=== PATIENT | female | born 1995 | race Caucasian/White ===

== ENCOUNTER → 2020-08-15 13:21 | Outpatient (CLI) | payer OTHER, SELFPAY | PROVIDERS: PCP Specialist; Visit Provider Specialist | DX: Z34.01 Encounter for supervision of normal first pregnancy, first trimester (principal); Z3A.09 9 weeks gestation of pregnancy ==

== ENCOUNTER → 2020-08-15 13:58 | Outpatient (CLI) | payer OTHER, SELFPAY ==
[2020-08-15 14:30] LABS: Add Manual Diff / Slide Review NO; Basophils Absolute Auto 100 /uL (0-100); Basophils Percent Auto 0.5 % (0-2); Eosinophils Absolute Auto 200 /uL (0-450); Eosinophils Percent Auto 1.6 % (2-4); Hematocrit 36.9 % (36-46); Hemoglobin 12.3 g/dL (12.0-16.0); Lymphocytes Absolute Auto 1800 /uL (1100-4500); Lymphocytes Percent Auto 14.5 % (25-40); Mean Corpuscular HGB Conc 33.4 % (30-36); Mean Corpuscular Hemoglobin 30.4 PG (26-34); Mean Corpuscular Volume 91.1 fL (80-100); Monocytes Absolute Auto 800 /uL (0-900); Monocytes Percent Auto 6.6 % (3-14); Neutrophils Absolute Auto 9300 /uL (1500-7000); Neutrophils Percent Auto 76.8 % (50-75); Platelet Count 347 X10^3/uL (150-400); Red Blood Cell Count 4.05 X10^6/uL (4.0-5.2); Red Cell Distribution Width 12.6 % (11.6-14.8); White Blood Cell Count 12.1 X10^3/uL (4.5-11.0)
[2020-08-15 15:53] LABS: Hepatitis B Surface Antigen NEGATIVE s/c (NEGATIVE); Rubella Antibody IgG 13.6 IU/mL (>15)
[2020-08-15 16:10] LABS: HIV 1 & 2 Ab/Ag 4th Gen Combo NEGATIVE (NEGATIVE); Hep C Virus Ab w/Reflex Quant NEGATIVE s/c (NEGATIVE)
[2020-08-16 07:18] LABS: RPR Screen Non Reactive (Non Reactive); Varicella IgG Antibody 1332 index (Immune >165)
== END ==
PROVIDERS: PCP Specialist; Referring Provider Specialist; Visit Provider Specialist
DX: Z34.01 Encounter for supervision of normal first pregnancy, first trimester (principal); Z3A.09 9 weeks gestation of pregnancy
CPT/HCPCS: 36415; 80055; 86787; 86803; 86850; 86900; 86901; 87389; 87491; 87591

== ENCOUNTER → 2020-09-19 15:51 | Outpatient (ROUT) | payer OTHER, SELFPAY | PROVIDERS: Visit Provider Specialist | DX: Z11.3 Encounter for screening for infections with a predominantly sexual mode of transmission; Z3A.15 15 weeks gestation of pregnancy | CPT/HCPCS: 87491; 87591 ==

== ENCOUNTER → 2020-10-31 12:43 | Outpatient (CLI) | payer OTHER, SELFPAY ==
--- NOTE | 2020-10-31 12:44 | DI.US.S_ITS ---
PROCEDURE: US OB >= 14 WEEKS FETUS INDICATIONS: ANATOMY OUTSIDE/PRIOR DATING DATA: Last menstrual period (LMP): 06/09/2020. LMP-based estimated date of delivery (ANNE-MARIE): 03/16/2021 . First dating scan (date and location): 08/15/2020 . Estimated date of delivery (ANNE-MARIE) from first dating scan: 03/15/2021 . TECHNIQUE: Real-time scanning was performed of the fetus, with image documentation and biometric measurements. Endovaginal scanning: No COMPARISON: None. FINDINGS: General: A single living intrauterine gestation is present. Presentation: Vertex. Placenta: Placental position is posterior , without previa. Amniotic fluid index: 13.3 cm, normal range is 5-24 cm. heart rate: 143 beats per minute. Maternal cervical canal: 3.6 cm long. Normal lower limit is 2.5 cm. biometrics: Biparietal diameter: 20 weeks 3 days Head circumference: 20 weeks 1 day Abdominal circumference: 20 weeks 3 days Femur length: 21 weeks 1 day Estimated gestational age from initial scan: 20 weeks 5 days Composite gestational age from present scan: 20 weeks 4 days Estimated weight and percentile: 370 g; 43rd percentile Measurement variability for biometric dating: +/- 7 days from 14 weeks to 15 weeks 6 days gestation, +/- 10 days from 16 weeks to 21 weeks 6 days gestation, +/- 2 weeks from 22 weeks to 27 weeks 6 days gestation, +/- 3 weeks for 28 weeks gestation or later. weight reference: 4500 g or EFW >90/95% is considered macrosomia or large for gestational age. EFW <10% is small for gestational age. EFW 5% or less is considered intra-uterine growth restriction. Anatomic survey: Neuro: Ventricles are non-dilated at less than 10 mm. Cisterna magna is normal at 3-11 mm. Cerebellum is normal in size and morphology. Nuchal skin fold: Normal at less than 6 mm between 14-21 weeks gestational age. Face: Nose and lips, facial profile are normal. Spine: No evidence for spina bifida. Heart: 4-chambered heart is present, with normal ventricular outflow tracts. Diaphragm: Diaphragm is intact. Stomach: Left-sided stomach is present. Kidneys: No hydronephrosis. Normal is less than 5 mm in 2nd trimester, less than 7 mm in 3rd trimester. Cord: 3-vessel cord has orthotopic insertion. Marginal cord insertion site roughly 1.5 cm from the placental margin. Bladder: Normal in size. Extremities: All 4 extremities identified. IMPRESSION: 1. Single living IUP redemonstrated and interval growth is normal. 2. Normal anatomic survey. 3. Marginal cord insertion site. Dictated by: Jose Denise [facility] Interpreted: Cuba Costa MD on 10/31/2020 at 15:52 Approved by: Cuba Costa M.D. on 10/31/2020 at 16:15
== END ==
PROVIDERS: Referring Provider Specialist; Visit Provider Specialist
DX: Z34.02 Encounter for supervision of normal first pregnancy, second trimester (principal); Z3A.20 20 weeks gestation of pregnancy
CPT/HCPCS: 76811

== ENCOUNTER → 2020-12-04 09:08 | Outpatient (CLI) | payer OTHER, SELFPAY ==
[2020-12-04 10:58] LABS: Hemoglobin 12.1 g/dL (12.0-16.0)
[2020-12-04 11:14] LABS: GTT (PREG) 1 Hour PP 50gm Dose 109 mg/dL (76-139)
== END ==
PROVIDERS: Referring Provider Specialist; Visit Provider Specialist
DX: Z34.02 Encounter for supervision of normal first pregnancy, second trimester (principal); Z3A.24 24 weeks gestation of pregnancy
CPT/HCPCS: 36415; 82950; 85014; 85018

== ENCOUNTER → 2021-02-20 13:38 | Outpatient (CLI) | payer OTHER, SELFPAY ==
[2021-02-23 14:56] LABS: Strep Grp B PCR POS for Grp B Strep
== END ==
PROVIDERS: Visit Provider Specialist
DX: Z34.03 Encounter for supervision of normal first pregnancy, third trimester (principal); Z3A.36 36 weeks gestation of pregnancy
CPT/HCPCS: 87653

== ENCOUNTER 2021-03-20 10:12 | Outpatient (CLI) | payer OTHER, SELFPAY ==
--- NOTE | 2021-03-20 11:10 | PM.OBTRLD ---
Visit Information Visit Information Date of evaluation: 03/20/21 Primary OB Provider: Neida Snell Reason for Evaluation: Yes non-stress test non-stress test reason: other (Postdates) [facility] Surgical History (Updated 08/05/20 @ 13:40 by Carol Miller RN) H/O wisdom tooth extraction (~12/2019) Family History (Updated 08/05/20 @ 13:40 by Carol Miller RN) Mother Aberrant thyroid gland H/O: hysterectomy History of 3 sections Father No problems noted. Grandfather No problems noted. Grandmother Cancer Breast cancer Hypertension Endometrial cancer Grandfather Smoker Grandmother No problems noted. Social History marital status: unmarried,living together household members: significant other lives independently: Yes pets and animals: Yes (X 1 dog) education level: college occupational status: employed current occupational exposures/hazards: No special brie needs: No Smoking Status: Never smoker second hand exposure: No alcohol intake: former substance use type: does not use Evaluation Evaluation Baseline heart rate: 120 Variability: Moderate (11-25) monitor accelerations: Present Monitor Decelerations: Absent Contraction Frequency (minutes): 5 Uterine Contraction Intensity: Mild Category of Tracing: Reactive Status: Category l Cervical dilation (cm): 1 Cervical effacement (%): 75 station: -2 Diagnosis, Plan/Disposition Final Diagnosis (1) Post term over 40 weeks: Status: Acute Plan/Disposition Plan: Reactive nonstress test. Yesterday 05/24 biophysical profile. Grade 3 placenta. Follow-up in 4 days. Precautions reviewed OB Disposition: home
== END 2021-03-20 11:15 | disposition home or self-care (01) ==
LOC: LABOR 11:03 → OB 03-23 09:48
PROVIDERS: Referring Provider Specialist; Visit Provider Specialist
DX: O48.0 Post-term pregnancy (principal); Z3A.40 40 weeks gestation of pregnancy
CPT/HCPCS: 59025; G0378; G0379

== ENCOUNTER 2021-03-24 12:41 | Outpatient (CLI) | payer OTHER, SELFPAY ==
--- NOTE | 2021-03-24 14:02 | PM.OBTRLD ---
Visit Information Visit Information Date of evaluation: 03/24/21 Primary OB Provider: Neida Snell On-call OB Provider: Aydin Redd Reason for Evaluation: Yes non-stress test non-stress test reason: other (Post-dates) [facility] Surgical History H/O wisdom tooth extraction (~12/2019) Family History Mother Aberrant thyroid gland H/O: hysterectomy History of 3 sections Father No problems noted. Grandfather No problems noted. Grandmother Cancer Breast cancer Hypertension Endometrial cancer Grandfather Smoker Grandmother No problems noted. Social History marital status: unmarried,living together household members: significant other lives independently: Yes pets and animals: Yes (X 1 dog) education level: college occupational status: employed current occupational exposures/hazards: No special brie needs: No Smoking Status: Never smoker second hand exposure: No alcohol intake: former substance use type: does not use Evaluation Evaluation Baseline heart rate: 145 Variability: Moderate (11-25) monitor accelerations: Present Monitor Decelerations: Absent Uterine Contraction Intensity: Mild Category of Tracing: Reactive Status: Category l Cervical dilation (cm): 0 Cervical effacement (%): 75 station: -2 Comments: Cervical ripening scheduled for the evening of 03/25/2021. Induction consent signed. Indication post-dates.
== END 2021-03-24 13:50 | disposition home or self-care (01) ==
LOC: LABOR 13:51 → OB 03-25 08:43
PROVIDERS: Referring Provider Specialist; Visit Provider Specialist
DX: O48.0 Post-term pregnancy (principal); Z3A.41 41 weeks gestation of pregnancy
CPT/HCPCS: 59025; G0378; G0379

== ENCOUNTER 2021-03-25 20:24 | Inpatient (IN) | payer OTHER, SELFPAY ==
[2021-03-25 22:54] LABS: Add Manual Diff / Slide Review NO; Basophils Absolute Auto 100 /uL (0-100); Basophils Percent Auto 0.6 % (0-2); Eosinophils Absolute Auto 200 /uL (0-450); Eosinophils Percent Auto 1.4 % (2-4); Hematocrit 38.2 % (36-46); Hemoglobin 12.8 g/dL (12.0-16.0); Lymphocytes Absolute Auto 2300 /uL (1100-4500); Lymphocytes Percent Auto 19.2 % (25-40); Mean Corpuscular HGB Conc 33.5 % (30-36); Mean Corpuscular Hemoglobin 31.2 PG (26-34); Mean Corpuscular Volume 93.1 fL (80-100); Monocytes Absolute Auto 1100 /uL (0-900); Monocytes Percent Auto 8.8 % (3-14); Neutrophils Absolute Auto 8500 /uL (1500-7000); Platelet Count 253 X10^3/uL (150-400); Red Cell Distribution Width 13.7 % (11.6-14.8); White Blood Cell Count 12.1 X10^3/uL (4.5-11.0)
[2021-03-25] MEDS: miSOPROStoL 200 MCG TABLET 50 MCG PO (23:17)
[2021-03-25 23:47] VITALS: BP 104/53
[2021-03-26 06:57] LABS: COVID19 -Nasal RAPID Negative (Negative)
--- NOTE | 2021-03-26 06:57 | PM.OBHP.1 ---
OB HPI History of Present Condition Chief complaint: IUP, Post-dates Narrative: Manjula Johnson is a 25 year old ANNE-MARIE 03/16/2021 admitted at 41+3 weeks EGA for cervical ripening/induction. course has been unremarkable but she is GBS +. Following her initial dose of PO cytotec, she experienced AROM this AM at 0130. The fluid was lightly meconium stained. Evaluation Evaluation Baseline heart rate: 145 Variability: Moderate (11-25) monitor accelerations: Present Monitor Decelerations: Absent Contraction Frequency (minutes): 3 Uterine Contraction Intensity: Mild Category of Tracing: Reactive Status: Category l Laboratory results: Laboratory Tests 03/25/21 03/25/21 22:25 22:25 WBC 12.1 H RBC 4.10 Hgb 12.8 Hct 38.2 MCV 93.1 MCH 31.2 MCHC 33.5 RDW 13.7 Plt Count 253 Neut % (Auto) 70.0 Lymph % (Auto) 19.2 L [place] % (Auto) 8.8 Eos % (Auto) 1.4 L Baso % (Auto) 0.6 Neut # (Auto) 8500 H Lymph # (Auto) 2300 [place] # (Auto) 1100 H Eos # (Auto) 200 Baso # (Auto) 100 Blood Type A Positive Antibody Screen Negative [facility] Surgical History H/O wisdom tooth extraction (~12/2019) Family History Mother Aberrant thyroid gland H/O: hysterectomy History of 3 sections Father No problems noted. Grandfather No problems noted. Grandmother Cancer Breast cancer Hypertension Endometrial cancer Grandfather Smoker Grandmother No problems noted. Social History marital status: unmarried,living together household members: significant other lives independently: Yes pets and animals: Yes (X 1 dog) education level: college occupational status: employed current occupational exposures/hazards: No special brie needs: No Smoking Status: Never smoker second hand exposure: No alcohol intake: former substance use type: does not use Meds Home Medications and Allergies Home Medications Medication Instructions Recorded Confirmed Type prenat.vits,nieves,ijz-wdto-penju 1 tab PO DAILY 08/05/20 03/24/21 History Allergies Allergy/AdvReac Type Severity Reaction Status Date / Time No Known Drug Allergies Allergy Verified 03/24/21 11:44 Review of Systems Review of Systems ROS: Yes All systems reviewed with the patient and are negative except as otherwise documented Exam Vital Signs (past 8 hours): - 03/25/21 23:47 Blood Pressure 104/53 L Const General: cooperative, healthy appearing and comfortable Nutritional Appearance: average body habitus Orientation: alert and oriented x3 HENMT Head: normocephalic and atraumatic Ears: hearing grossly normal bilaterally Nose: external nose normal Face and sinus: face symmetric Mouth: oral mucosae normal and tongue normal Teeth and gingiva: dentition normal Throat: posterior oropharynx normal Eyes General: appearance normal, both eyes and all related structures Eyelids: eyelids normal Conjunctivae: conjunctivae normal Sclera: sclerae normal Cornea: corneas normal Pupils: PERRL EOM: EOM intact bilaterally Neck Neck: full ROM, trachea midline and No lymphadenopathy Thyroid: thyroid normal Resp Effort & Inspection: normal respiratory effort Auscultation: clear to auscultation bilaterally Cardio Rate: regular rate Rhythm: regular rhythm Heart Sounds: S1 normal and S2 normal Pulses: normal peripheral pulses GI Inspection: other (Gravid abdomen) Palpation: soft Other: Fundus c/w term IUP, EFW 8+#, NT OB/External & Speculum: deferred Manual OB Exam: dilated 1, effaced 75% and station (Prior to first dose of cytotec, PM 03/25/2021) -2 Presentation: vertex Amniotic Fluid: meconium (Possible light staining noted at the time of AROM) Extrem General: normal to inspection and full ROM Psych Appearance: grossly normal Mental Status: mental status grossly normal Speech and Movement: speech and movement normal Mood: congruent mood Affect: normal affect Attitude: cooperative Thought Process: normal Thought Content: normal Judgment: judgment good Objective Labs Result Diagrams: 03/25/21 22:25 Labs: Laboratory Results - last 24 hr 03/25/21 03/25/21 22:25 22:25 WBC 12.1 H RBC 4.10 Hgb 12.8 Hct 38.2 MCV 93.1 MCH 31.2 MCHC 33.5 RDW 13.7 Plt Count 253 Neut % (Auto) 70.0 Lymph % (Auto) 19.2 L [place] % (Auto) 8.8 Eos % (Auto) 1.4 L Baso % (Auto) 0.6 Neut # (Auto) 8500 H Lymph # (Auto) 2300 [place] # (Auto) 1100 H Eos # (Auto) 200 Baso # (Auto) 100 Blood Type A Positive Antibody Screen Negative Assessment and Plan Assessment and Plan Assessment and Plan narrative: 1. IUP, leyva, vertex, 41+3 weeks EGA Ripening/induction; consent signed Anticipate Pain management; Open to all options 2. GBS+ PCN AB prophylaxis initiated Time Spent with Patient Total time spent with greater than 50% in coordination of care (as documented) at patient's floor/unit and/or counseling patient:: 15-24 minutes
[2021-03-26] MEDS: LACTATED RINGERS 1,000 ML 100 ML IV ×2 (09:18→21:24)
[2021-03-26] MEDS: OXYTOCIN PREMIX 30 UNIT/500 ML PLAST..BAG IV (09:19)
[2021-03-26] MEDS: PENICILLIN G POTASSIUM 5,000,000 UNIT in DEXTROSE 5% IN WATER 250 ML IV (09:20)
[2021-03-26] MEDS: FENT 2MCG/ML BUPIV 0.125% EPI 200 MCG/100 ML PLAST..BAG 12 MCG EPIDURAL (11:40)
--- NOTE | 2021-03-26 12:55 | PM.OBPNLAB ---
Date/Time Date Patient Seen: 03/26/21 Time Patient Seen: 12:56 Pain Control Pain control: tolerating well and epidural Comments: Excellent relief with JAVIER Pelvic Exam Dilation (cm): 3 Effacement (%): 70 station: -2 Amniotic membrane status: Ruptured Contractions Contractions on admission: regular Monitor mode: External Pitocin rate (mU/min): 9 Contraction frequency (min): 5 Contraction duration (min): 60 Contraction pattern: Regular Contraction intensity: Moderate Status status: Category l Heart Rate Baseline: 125 Monitor Accelerations: Present Monitor Decelerations: Absent Monitor Variability: Moderate Assessment and Plan Assessment: induction ongoing Plan: continuous present management Comments: Anticipate cervical recheck @ 1600 this afternoon.
[2021-03-26] MEDS: PENICILLIN G POTASSIUM 3,000,000 UNIT/50 ML FROZ.PIGGY 100 UNIT IV ×3 (12:58→21:15)
--- NOTE | 2021-03-26 16:34 | PM.OBPNLAB ---
Date/Time Date Patient Seen: 03/26/21 Time Patient Seen: 16:05 Pain Control Pain control: tolerating well and epidural Pelvic Exam Dilation (cm): 4 Effacement (%): 80 station: -2 Amniotic membrane status: Ruptured Comments: OT position Contractions Contractions on admission: regular Monitor mode: External Pitocin rate (mU/min): 18 Contraction frequency (min): 3 Contraction pattern: Regular Contraction intensity: Moderate Status status: Category l Heart Rate Baseline: 130 Monitor Accelerations: Present Monitor Decelerations: Absent Monitor Variability: Moderate Assessment and Plan Assessment: induction ongoing Plan: continuous present management Comments: Current status and cervical check findings discussed with the patient and her family. She is currently in the latent phase which has a highly variable duration but patient informed that wants to in the active phase, 6 cm or greater, progress and be more predictable. She was also informed that she is occiput transverse which is not uncommon but may delay progress in either the latent or early active phase. Dr. Stefani Beckman will be on-call tonight in the patient was made aware of this fact. Dr. Beckman has been verbally briefed on the patient's status and will be visiting with the patient later this evening.
--- NOTE | 2021-03-26 19:15 | PM.OBPNLAB ---
Date/Time Date Patient Seen: 03/26/21 Time Patient Seen: 19:15 Pain Control Pain control: epidural Pelvic Exam Dilation (cm): 4 Effacement (%): 80 station: -2 Amniotic membrane status: Ruptured Contractions Monitor mode: External Pitocin rate (mU/min): 21 Contraction frequency (min): 3 Contraction pattern: Regular Contraction intensity: Moderate Status status: Category l Heart Rate Baseline: 135 Monitor Accelerations: Present Monitor Decelerations: Absent Monitor Variability: Moderate Comments: +scalp stim Assessment and Plan Assessment: induction ongoing Plan: continuous present management Comments: Discussed latent labor, discussed cat 1 EFM, afebrile, no signs/sx infection and patient has been being treated for GBS. Will continue to monitor.
[2021-03-27] MEDS: FENT 2MCG/ML BUPIV 0.125% EPI 200 MCG/100 ML PLAST..BAG 6 MCG EPIDURAL ×2 (00:35→05:35)
[2021-03-27] MEDS: PENICILLIN G POTASSIUM 3,000,000 UNIT/50 ML FROZ.PIGGY 100 UNIT IV (04:30)
--- NOTE | 2021-03-27 05:23 | PM.OBPNLAB ---
Date/Time Date Patient Seen: 03/27/21 Time Patient Seen: 05:23 Pain Control Pain control: epidural Pelvic Exam Dilation (cm): 4 Effacement (%): 80 station: -2 Amniotic membrane status: Ruptured Comments: VSS, T 36.8C Contractions Monitor mode: External Contraction pattern: Regular Contraction intensity: Moderate Status status: Category l Heart Rate Baseline: 125 Monitor Accelerations: Present Monitor Decelerations: Absent Monitor Variability: Moderate Comments: + scalp stim Assessment and Plan Plan: Comments: THis patient is a 25yo @41+4 admitted for IOL for postdates. The patient underwent cervical ripening with one dose of oral cytotec before SROM at 1:30 AM on 03/26, with subsequent augmentation of labor with pitocin. She was 3cm dilated on 03/26 at 8:30 AM, progressed to 4cm dilated on 03/26 at 4:00 PM, and has remained 4cm dilated since that time. Her pitocin has been as high as 27 mU/min during that time, with palpably firm and regular contractions. The patient is GBS+ and has been undergoing treatment with penicillin per the usual protocol. This AM, the patient's exam remained the same, though her pitocin was off for three hours per patient request. We discussed that the latent phase can be long, and that as the baby is cat 1, we can continue pitocin augmentation. We discussed at length the risks of primary section including hemorrhage, infection, and damage to surrounding organs including bowel and bladder. We discussed the risks to future pregnancies including abnormal placentation, uterine rupture, and increased scar tissue. The patient and her partner vocalized understanding and all questions were answered, but they would like to proceed with primary section rather than continue to undergo induction. We will begin prep for the OR.
--- NOTE | 2021-03-27 06:19 | PM.PREOP ---
Pre-operative Note COVID-19 COVID-19 status: Negative Result date/Date tested (Pos, Neg/Pending): 03/25/21 Interval Note History & Physical reviewed/Exam performed by Physician: Yes Changes to H&P: No
[2021-03-27] MEDS: CEFAZOLIN 1 GM VIAL 2 GM IV (06:40)
[2021-03-27] MEDS: AZITHROMYCIN 500 MG in DEXTROSE 5% IN WATER 250 ML IV (06:45)
--- NOTE | 2021-03-27 06:52 | SUR.OPER ---
Supine on Padded OR bed, head on pillow, safety belt at thigh, arms secured on padded arm boards at <90 degrees abduction. Bump under right buttock. Legs uncrossed with pillow under knees, gel pad to heels, tape over blanket to lower legs. Gel pad between urinary catheter tubing and patients posterior leg.
--- NOTE | 2021-03-27 07:11 | SUR.OPER ---
Viable baby girl delivered at 0703. Placenta delivered. Cord blood tubes X2 and placenta given to L&D RN.
[2021-03-27 08:02] VITALS: BP 119/75; PULSE 74; RESP 12; TEMP 36.7
[2021-03-27 08:07] VITALS: BP 119/74; PULSE 77; RESP 16; O2SAT 96
[2021-03-27 08:12] VITALS: BP 119/74; PULSE 71; RESP 16; O2SAT 96
[2021-03-27 08:17] VITALS: BP 114/71; PULSE 67; TEMP 36.7
[2021-03-27 08:35] VITALS: BP 125/81; PULSE 78; RESP 16
[2021-03-27 08:36] VITALS: BP 110/70; PULSE 68; RESP 16; TEMP 36.7
--- NOTE | 2021-03-27 09:12 | PM.OBCS.1 ---
Operative Date/Time/Diagnoses Date of procedure: 03/27/21 Time of procedure: 06:30 Pre-op diagnosis: failed induction of labor Post-op diagnosis: same Procedure & Clinicians Procedure: primary section Same procedure as scheduled: Yes Indications: arrest of dilation in the 1st stage of labor Surgeon: Stefani Beckman Assessment Expert: Daly Parmar Reason for Assessment Expert: assistance with retraction, delivery of infant, and management of uterine atony Anesthesia Type: General and Epidural Operative Notes Findings: Female in cephalic, asynclitic presentation. Apgars 9 and 9, weight 8 lb, 12 oz. normal uterus, tubes, ovaries. Closure Type: primary Specimen(s): cord blood Intraoperative meds administered: Ketorolac and Pitocin Applied: Catheter Estimated Blood Loss (mL): 1,000 Blood products transfused: none Procedure in detail: EBL: 1 L Fluids: 900 cc UOP: 75 cc concentrated yellow urine Procedures: The patient was taken to the operating room where spinal anesthesia was placed and found to be adequate. She was prepped and draped in the normal sterile fashion in the dorsal supine position with a leftward tilt. A Pfannenstiel skin incision was made with a scalpel and carried through to the underlying layer of fascia. The fascia was incised in the midline and the incision extended laterally with Morales scissors. The superior aspect of this incision was grasped with Ezekiel clamps, elevated, and the underlying rectus muscles dissected off bluntly and with the curved Morales scissors. Attention was then turned to the inferior aspect of this incision which, in a similar fashion, was grasped, tented up with the Ezekiel clamps, and the rectus muscles dissected off bluntly and with the curved Morales scissors. The rectus muscles were then in the midline, and the peritoneum identified, tented up, and entered sharply with Metzenbaum scissors. The peritoneal incision was extended superiorly and inferiorly with good visualization of the bladder. The bladder blade was inserted and the vesicouterine peritoneum identified, grasped with pickups, and entered sharply with the Metzenbaum scissors. This incision was extended laterally, and the bladder flap created digitally. The bladder blade was then reinserted and the lower uterine segment incised in transverse fashion with the scalpel. The uterine incision was bluntly extended laterally. The bladder blade was removed, and the infant's head delivered atraumatically. No nuchal cord was noted. After 45 seconds of delayed cord clamping, the cord was clamped and cut. The nose and mouth were suctioned as needed with a bulb syringe, and the infant was handed off to awaiting pediatricians. The placenta was then removed spontaneously, and the uterus was exteriorized and cleared of all clots and debris. The uterine incision was repaired with 1-0 chromic in a running, locked fashion and a 2nd layer of the same suture was used to obtain excellent hemostasis. Uterus was notable for poor tone initially with loss from several vessels, but hemostasis was achieved. The uterus was returned to the abdomen, and the gutters were cleared of all clots and debris. The bladder flap was closed with 2-0 Vicryl in a running fashion, the peritoneum was closed with 3-0 Vicryl, and the fascia reapproximated with 0 Vicryl in a running fashion. The subcutaneous layer was placed with 3 0 Vicryl in an interrupted fashion and the skin was closed with 4-0 biosyn in a running fashion. The patient tolerated the procedure well and sponge lap and needle counts were correct x2. 2 g of Ancef and 500 mg of azithromycin were given at commencement of the case. A vaginal Betadine prep was performed prior to the case along with the usual abdominal prep. The patient was taken to the recovery room in stable condition. Complications: none [place] Baby 1: Infant Gender: Female Presentation: vertex Placental Delivery Description: Spontaneous Cord Vessel Description: 3 Vessels score (1 min): 9 score (5 min): 9 weight: 8 lb 12 oz Post-operative Condition: stable Disposition: PACU Aftercare: routine postop
[2021-03-27] MEDS: KETOROLAC 30 MG/ML VIAL IV ×2 (14:29→20:35)
[2021-03-27] MEDS: ACETAMINOPHEN 325 MG TABLET 650 MG PO (19:50)
[2021-03-28] MEDS: KETOROLAC 30 MG/ML VIAL IV (02:29)
[2021-03-28] MEDS: ACETAMINOPHEN 325 MG TABLET 650 MG PO ×2 (06:27→19:58)
[2021-03-28 06:38] LABS: Add Manual Diff / Slide Review NO; Basophils Absolute Auto 100 /uL (0-100); Basophils Percent Auto 0.3 % (0-2); Eosinophils Absolute Auto 300 /uL (0-450); Eosinophils Percent Auto 1.5 % (2-4); Hematocrit 31.1 % (36-46); Hemoglobin 10.6 g/dL (12.0-16.0); Lymphocytes Absolute Auto 1200 /uL (1100-4500); Lymphocytes Percent Auto 6.7 % (25-40); Mean Corpuscular Hemoglobin 31.7 PG (26-34); Mean Corpuscular Volume 93.2 fL (80-100); Monocytes Absolute Auto 1400 /uL (0-900); Monocytes Percent Auto 7.8 % (3-14); Neutrophils Absolute Auto 15500 /uL (1500-7000); Neutrophils Percent Auto 83.7 % (50-75); Platelet Count 185 X10^3/uL (150-400); Red Blood Cell Count 3.34 X10^6/uL (4.0-5.2); Red Cell Distribution Width 13.8 % (11.6-14.8); White Blood Cell Count 18.5 X10^3/uL (4.5-11.0)
--- NOTE | 2021-03-28 08:58 | P.PNOB_ITS ---
Subjective - OB Subjective Patient comments: no complaints and pain well controlled baby status: doing well and nursing well feeding status: exclusively breast feeding Date Patient Seen: 03/28/21 Time Patient Seen: 08:59 Interval history: Patient states she is doing extremely well, is ambulating, and tolerating regular diet. Her bleeding is steadily decreasing. She has started passing gas but has not yet had a bowel movement. She denies any leg or calf pain. Exam Vital Signs (past 8 hours): Oxygen Delivery Method Room Air Const General: cooperative and comfortable Orientation: alert and oriented x3 HENMT Head: normocephalic and atraumatic Ears: hearing grossly normal bilaterally Nose: external nose normal Eyes General: appearance normal, both eyes and all related structures Conjunctivae: conjunctivae normal Sclera: sclerae normal Resp Effort & Inspection: normal respiratory effort Auscultation: clear to auscultation bilaterally Cardio Rate: regular rate Rhythm: regular rhythm Heart Sounds: S1 normal and S2 normal GI Inspection: incision (Dressing intact with some seepage unchanged from 03/27/2021) Palpation: soft and no hepatosplenomegaly Auscultation: hypoactive bowel sounds Extrem General: normal to inspection Right lower extremity: no edema Left lower extremity: no edema Other: No calf tenderness noted on either side. Psych Appearance: grossly normal Mental Status: mental status grossly normal Speech and Movement: speech and movement normal Mood: congruent mood Affect: normal affect Attitude: cooperative Thought Process: normal Thought Content: normal Judgment: judgment good Objective Labs Result Diagrams: 03/28/21 06:24 Labs: Laboratory Results - last 24 hr 03/28/21 06:24 WBC 18.5 H RBC 3.34 L Hgb 10.6 L Hct 31.1 L MCV 93.2 MCH 31.7 MCHC 34.0 RDW 13.8 Plt Count 185 Neut % (Auto) 83.7 H Lymph % (Auto) 6.7 L [place] % (Auto) 7.8 Eos % (Auto) 1.5 L Baso % (Auto) 0.3 Neut # (Auto) 12441 H Lymph # (Auto) 1200 [place] # (Auto) 1400 H Eos # (Auto) 300 Baso # (Auto) 100 Assessment & Plan Plan day: 1 plan OB: routine postop care Time Spent With Patient Time: Total time spent is greater than 50% in coordination of care (as documented) at patient's floor/unit and/or counseling patient: Time with patient: 15-24 minutes
[2021-03-28] MEDS: PRENATAL VIT,CALC/IRON/FOLIC 1 TABLET 1 TAB PO (09:54)
[2021-03-28] MEDS: IBUPROFEN 600 MG TABLET PO ×2 (09:55→19:57)
[2021-03-28] MEDS: DOCUSATE 250 MG CAPSULE PO (09:56)
[2021-03-28] MEDS: LANOLIN OINT 7 GM 1 APPLIC TOP (19:58)
[2021-03-29] MEDS: ACETAMINOPHEN 325 MG TABLET 650 MG PO (01:49)
[2021-03-29] MEDS: IBUPROFEN 600 MG TABLET PO (01:50)
--- NOTE | 2021-03-29 10:37 | PM.OBDS.1 ---
Discharge Providers Provider Date of admission: 03/25/21 20:24 Discharge Date: 03/29/21 Consults: 03/25/21 22:00 Consult to Anesthesiology Urgent Comment: Consulting Provider: Anesthesiologist Reason for consultation: Epidural Has provider been notified: No 03/27/21 09:32 Consult to Grinder Set Up Operator Universal Routine Comment: Discharge provider: Aydin Redd MD Summary Hospital Course Date Patient Seen: 03/29/21 Time Patient Seen: 10:37 Diagnoses: Intrauterine , post-dates, delivered Secondary arrest of labor due to cephalo-pelvic dysproportion Hospital Course: Dues to secondary arrest of labor at 4 cm dilation for greater than 12 hours, Manjula underwent a primary section via LTC on the morning of 03/27/2021. Detailes of the procedure are well summarized on the operative note of Dr. Stefani Beckman on that date. Following her she's done extremely well with prompt return of bowel and bladder function. She's ambulating well and tolerating a regular diet without difficulty. Her pain is well controlled with Tylenol and Ibuprofen. Her POD1 H/H were 10.6/31.1 which is consistent with observed operative losses. prior to discharge she was counselled re: precautionary symptoms, limitations of activity, medications and plans for follow-up. Medications at D/C include Tylenol OTC as directed, Ibuprofen 600 mg q 6, and Colace 250 mg daily. Follow-up for her and her infant is scheduled for 03/31/2021. Peripartum Data Delivery Method: Section Procedures: Primary Cesrean Section, Low transverse cervical complications: none Status at Discharge Cognitive/behavioral status at discharge: at baseline, oriented Functional status at discharge: independent ambulation Overall status at discharge: patient is not back to baseline Time Spent with Patient Time attestation: Total time spent providing and/or coordinating discharge services: 15 Time spent: Less than 30 minutes Specific discharge activities: Discussed with patient Objective Labs Result Diagrams: 03/28/21 06:24 Exam Vital Signs (past 8 hours): Oxygen Delivery Method Room Air Const General: cooperative, comfortable and No in distress Nutritional Appearance: well nourished Orientation: alert and oriented x3 HENMT Head: normocephalic and atraumatic Ears: hearing grossly normal bilaterally Nose: external nose normal Eyes Conjunctivae: conjunctivae normal Sclera: sclerae normal EOM: EOM intact bilaterally Resp Effort & Inspection: normal respiratory effort and no respiratory distress Auscultation: clear to auscultation bilaterally Cardio Rate: regular rate Rhythm: regular rhythm Heart Sounds: S1 normal, S2 normal and no murmurs GI Inspection: distended (Mildly distended) and other (Incision dressing intact) Palpation: soft and no hepatosplenomegaly Auscultation: normal bowel sounds Extrem Left upper extremity: normal to inspection Right lower extremity: normal to inspection Other: No calf tenderness on either side Psych Mental Status: mental status grossly normal Speech and Movement: speech and movement normal Mood: congruent mood Affect: normal affect, No sad, No indifferent and No blunted Attitude: cooperative Thought Process: normal Thought Content: normal Judgment: judgment good Discharge Plan Discharge Plan Patient Disposition: Home Provider Discharge Comment: Two prescriptions have been sent to [facility], [facility] Discharge orders & Medications Prescriptions: New docusate sodium 250 mg Capsule 250 mg PO DAILY 30 Days Qty: 30 RF: 0 ibuprofen 600 mg Tablet 600 mg PO Q6H PRN (Reason: Fever/Mild Pain (1-3)) Qty: 60 RF: 0 acetaminophen 325 mg Tablet 650 mg PO Q6HR PRN (Reason: Fever/Mild Pain (1-3)) Qty: 30 RF: 12 Continued prenat.vits,nieves,ois-nuni-tqvfa Tablet 1 tab PO DAILY RF: 0 Discharge Health Status Multidrug resistant organism: No MDRO Diet/Activity/Treatments Diet: Diet as Tolerated Activity: As tolerated Skin/Wound/Dressing Care Dressing: To be removed in-office 03/23/2021
[2021-03-29 10:55] VITALS: BP 128/76; PULSE 90; RESP 17; TEMP 35.8
[2021-03-29] MEDS: MEASLES,MUMPS,RUBELLA VACC/PF 0.5 ML VIAL SUBCUT (11:20)
== END 2021-03-29 11:45 | disposition home or self-care (01) | DRG 788 ==
PROVIDERS: Obstetrics & Gynecology; Specialist; Admitting Provider Obstetrics & Gynecology; Referring Provider Obstetrics & Gynecology; Visit Provider Obstetrics & Gynecology
PROC: 10D00Z1 Extraction of Products of Conception, Low, Open Approach (ICD-10-PCS; CPT 59514; principal; 2021-03-27 06:45)
DX: O48.0 Post-term pregnancy (principal); Z3A.41 41 weeks gestation of pregnancy; Z37.0 Single live birth; O99.824 Streptococcus B carrier state complicating childbirth; O61.0 Failed medical induction of labor; O77.0 Labor and delivery complicated by meconium in amniotic fluid; Z20.822 Contact with and (suspected) exposure to COVID-19
CPT/HCPCS: 01967; 01968; 36415; 59025; 59050; 59200; 59510; 59514; 85025; 86850; 86900; 86901; 87635; C9803; G0379; J0690; J1885; J2274; J2540; J2590; J2704; J3010; S0191

== ENCOUNTER → 2022-08-18 11:00 | Outpatient (CLI) | payer OTHER, SELFPAY ==
[2022-08-18 12:02] LABS: Add Manual Diff / Slide Review NO; Basophils Absolute Auto 0 /uL (0-100); Basophils Percent Auto 0.4 % (0-2); Eosinophils Absolute Auto 300 /uL (0-450); Eosinophils Percent Auto 2.8 % (2-4); Hemoglobin 13.1 g/dL (12.0-16.0); Lymphocytes Absolute Auto 1800 /uL (1100-4500); Lymphocytes Percent Auto 16.6 % (25-40); Mean Corpuscular HGB Conc 33.6 % (30-36); Mean Corpuscular Hemoglobin 30.3 PG (26-34); Mean Corpuscular Volume 90.2 fL (80-100); Monocytes Absolute Auto 600 /uL (0-900); Monocytes Percent Auto 5.2 % (3-14); Neutrophils Absolute Auto 8100 /uL (1500-7000); Platelet Count 323 X10^3/uL (150-400); Red Blood Cell Count 4.33 X10^6/uL (4.0-5.2); Red Cell Distribution Width 12.7 % (11.6-14.8); White Blood Cell Count 10.8 X10^3/uL (4.5-11.0)
[2022-08-19 07:50] LABS: RPR Screen Non Reactive (Non Reactive)
[2022-08-19 08:10] LABS: Varicella IgG Antibody 920 index (Immune >165)
[2022-08-19 17:15] LABS: Hepatitis B Surface Antigen NEGATIVE s/c (NEGATIVE); Rubella Antibody IgG 41.9 IU/mL (>15)
[2022-08-19 17:24] LABS: HIV 1 & 2 Ab/Ag 4th Gen Combo NEGATIVE (NEGATIVE)
[2022-08-19 17:47] LABS: Hep C Virus Ab w/Reflex Quant NEGATIVE s/c (NEGATIVE)
== END ==
PROVIDERS: Referring Provider Obstetrics & Gynecology; Visit Provider Obstetrics & Gynecology
DX: Z34.81 Encounter for supervision of other normal pregnancy, first trimester (principal)
CPT/HCPCS: 36415; 80055; 86787; 86803; 86850; 86900; 86901; 87389

== ENCOUNTER → 2022-08-25 07:25 | Outpatient (CLI) | payer OTHER, SELFPAY ==
--- NOTE | 2022-08-25 07:26 | DI.US.S_ITS ---
PROCEDURE: US OB LIMITED INDICATIONS: DATES OUTSIDE/PRIOR DATING DATA: Last menstrual period (LMP): 05/10/2022. LMP-based estimated date of delivery (ANNE-MARIE): 02/14/2023. First dating scan (date and location): 08/25/2022. Estimated date of delivery (ANNE-MARIE) from first dating scan: 02/16/2023. TECHNIQUE: Real-time scanning was performed of the fetus, with image documentation and biometric measurements. Biophysical profile was also obtained. Endovaginal scanning: Multiple performed. COMPARISON: None. FINDINGS: General: A single living intrauterine gestation is present. Presentation: Transverse head to the right. Placenta: Placental position is anterior. There is marginal previa. Amniotic fluid index: 9.2 cm, normal range is 5-24 cm. Single deepest vertical pocket is 3.5 cm. heart rate: 150 beats per minute. Maternal cervical canal: Not visualized. biometrics: Biparietal diameter: 15 weeks 1 day Head circumference: 15 weeks 1 day Abdominal circumference: 15 weeks 0 day Femur length: 14 weeks 4 days Clinically estimated gestational age: 15 weeks 2 days Composite gestational age from present scan: 15 weeks 0 day IMPRESSION: 1. A single living intrauterine gestation with an estimated gestational age of 15 weeks 0 day based on the current ultrasound. Ultrasound dating concordant with clinical dating. 2. Marginal placenta previa. We strive to produce accurate, complete, and clear reports of imaging services. To assist us in improving patient care, this report was composed using standard report templates and voice recognition software. Therefore, it may contain abnormal punctuation, insertions and/or omissions. Occasional wrong-word or sound-alike substitutions may occur. Though we review the report and make efforts to correct it, we do recommend that the report be read carefully in proper context to recognize any text inaccuracies. Dictated by: Leon Sampson M.D. on 08/25/2022 at 12:27 Approved by: Leon Sampson M.D. on 08/25/2022 at 12:31
== END ==
PROVIDERS: Referring Provider Obstetrics & Gynecology; Visit Provider Obstetrics & Gynecology
DX: Z3A.15 15 weeks gestation of pregnancy; Z36.87 Encounter for antenatal screening for uncertain dates
CPT/HCPCS: 76815

== ENCOUNTER → 2022-09-15 08:45 | Outpatient (CLI) | payer OTHER, SELFPAY ==
[2022-09-15 13:51] LABS: Appearance Urine UA CLEAR; Bilirubin Urine UA NEGATIVE (NEGATIVE); Color Urine UA YELLOW; Glucose Urine UA TRACE g/dL (Negative); Ketones Urine UA NEGATIVE (NEGATIVE); Leukocyte Esterase Urine UA NEGATIVE (NEGATIVE); Nitrite Urine UA NEGATIVE (Negative); Occult Blood Urine UA NEGATIVE (Negative); Protein Urine UA NEGATIVE (Negative); Specific Gravity Urine UA 1.015 (1.000-1.035); Urobilinogen Urine UA 0.2 E.U./dL (0.2)
[2022-09-15 13:58] LABS: pH Urine UA 6.5 (4.5-8.0)
== END ==
PROVIDERS: Visit Provider Obstetrics & Gynecology
DX: Z34.81 Encounter for supervision of other normal pregnancy, first trimester (principal)
CPT/HCPCS: 81003; 87086

== ENCOUNTER → 2022-11-02 11:42 | Outpatient (CLI) | payer OTHER, SELFPAY ==
--- NOTE | 2022-11-02 11:43 | DI.US.S_ITS ---
PROCEDURE: US OB >= 14 WEEKS FETUS INDICATIONS: 20 Week Anatomy Scan OUTSIDE/PRIOR DATING DATA: Last menstrual period (LMP): 05/10/2022. LMP-based estimated date of delivery (ANNE-MARIE): 02/14/2023. First dating scan (date and location): 08/25/2022. Estimated date of delivery (ANNE-MARIE) from first dating scan: 02/16/2023. The calculations are made using the ultrasound ANNE-MARIE of 02/16/2023. TECHNIQUE: Real-time scanning was performed of the fetus, with image documentation and biometric measurements. COMPARISON: [facility], US OB LIMITED, 08/25/2022, 7:44. [facility], US OB >= 14 WEEKS FETUS, 03/19/2021, 14:14. FINDINGS: General: A single living intrauterine gestation is present. Presentation: Transverse. Placenta: Placental position is anterior, without previa. Amniotic fluid index: 12.4 cm, normal range is 5-24 cm. Single deepest vertical pocket is 3.5 cm. heart rate: 141 beats per minute. Maternal cervical canal: 3.6 cm long. Normal lower limit is 2.5 cm. biometrics: Biparietal diameter: 5.6 cm, 23 weeks 0 days Head circumference: 21.9 cm, 24 weeks 0 days Abdominal circumference: 20.7 cm, 25 weeks 2 days Femur length: 4.5 cm, 24 weeks 6 days Clinically estimated gestational age: 25 weeks 1 day Composite gestational age from present scan: 24 weeks 2 days Estimated weight and percentile: 743 g, 28th percentile Anatomic survey: Neuro: Ventricles are non-dilated at less than 10 mm. Cisterna magna is normal at 3-11 mm. Cerebellum is normal in size and morphology. Nuchal skin fold: Normal at less than 6 mm between 14-21 weeks gestational age. Face: Nose and lips, facial profile are normal. Spine: No evidence for spina bifida. Heart: 4-chambered heart is present, with normal ventricular outflow tracts. Diaphragm: Diaphragm is intact. Stomach: Left-sided stomach is present. Kidneys: No hydronephrosis. Normal is less than 5 mm in 2nd trimester, less than 7 mm in 3rd trimester. Cord: 3-vessel cord has orthotopic insertion. Bladder: Normal in size. Extremities: All 4 extremities identified. IMPRESSION: 1. Landin living intrauterine at 24 weeks 2 days based on today's ultrasound. This is concordant with the prior ultrasound. There is expected interval growth. 2. Normal placenta and amniotic fluid. 3. Normal and complete anatomic survey. We strive to produce accurate, complete, and clear reports of imaging services. To assist us in improving patient care, this report was composed using standard report templates and voice recognition software. Therefore, it may contain abnormal punctuation, insertions and/or omissions. Occasional wrong-word or sound-alike substitutions may occur. Though we review the report and make efforts to correct it, we do recommend that the report be read carefully in proper context to recognize any text inaccuracies. Dictated by: Gabriel Hobbs M.D. on 11/02/2022 at 15:53 Approved by: Gabriel Hobbs M.D. on 11/02/2022 at 15:59
== END ==
PROVIDERS: Referring Provider Obstetrics & Gynecology; Visit Provider Obstetrics & Gynecology
DX: Z34.82 Encounter for supervision of other normal pregnancy, second trimester (principal); Z3A.24 24 weeks gestation of pregnancy
CPT/HCPCS: 76811

== ENCOUNTER → 2022-11-11 09:48 | Outpatient (CLI) | payer OTHER, SELFPAY ==
[2022-11-11 11:18] LABS: Hematocrit 35.6 % (36-46); Hemoglobin 11.9 g/dL (12.0-16.0)
[2022-11-11 11:29] LABS: GTT (PREG) 1 Hour PP 50gm Dose 109 mg/dL (76-139)
== END ==
PROVIDERS: Referring Provider Obstetrics & Gynecology; Visit Provider Obstetrics & Gynecology
DX: Z34.82 Encounter for supervision of other normal pregnancy, second trimester (principal); Z3A.26 26 weeks gestation of pregnancy
CPT/HCPCS: 36415; 82950; 85014; 85018

== ENCOUNTER → 2023-02-03 10:43 | Outpatient (CLI) | payer OTHER, SELFPAY ==
[2023-02-04 09:47] LABS: Strep Grp B PCR POS for Grp B Strep
== END ==
PROVIDERS: Visit Provider Obstetrics & Gynecology
DX: O09.899 Supervision of other high risk pregnancies, unspecified trimester (principal); Z3A.37 37 weeks gestation of pregnancy; Z87.440 Personal history of urinary (tract) infections
CPT/HCPCS: 87653

== ENCOUNTER 2023-02-10 11:27 | Inpatient (IN) | payer OTHER, SELFPAY ==
--- NOTE | 2023-02-10 08:49 | PM.OBHP.1 ---
OB HPI Date/Time Date of admission: 02/10/23 Date Patient Seen: 02/10/23 Time Patient Seen: 12:30 History of Present Condition Chief complaint: IUP, 39+0 wks EGA, Prior (2020) : 2 Para: 1 Estimated Date of Delivery: 02/17/23 Estimated Gestational Age (weeks): 39+0 Narrative: Manjula Johnson is a 27 year old admitted now for repeat section at 39+ 0 weeks gestational age. Her course has been largely uneventful with solid dating and appropriate milestones throughout. testing by cell free DNA and/or quad screen declined. Patient is GBS positive. Indications Operative indications ( section): previous uterine surgery History of Present care: good care Dating criteria: LMP confirmed by 1st trimester US Ultrasounds: normal 1st trimester US and normal mid trimester US Obstetrical complications: none Medical complications: none Preadmission Labs Blood type: A (+) positive -: Antibody screen: negative, GBS status: negative, HBsAG: negative, HIV: negative and RPR/VDLR: negative -: Chlamydia screen: not detected and Gonorrhea screen: not detected -: Rubella: immune and Varicella: immune HCT: 35.6 HCAB: negative PAP: Normal 1 hr GTT: 109 Prior (ies) History: CS x 1 (2020) [facility] Medical History (Updated 01/28/23 @ 14:58 by Maxim Givens MD) Ankle fracture Surgical History (Updated 08/18/22 @ 10:51 by Aydin Redd MD) Delivery by section (~03/27/21) H/O wisdom tooth extraction (~12/2019) Family History (Updated 08/10/22 @ 10:53 by Roxanne Blanco RN) Mother Aberrant thyroid gland H/O: hysterectomy History of 3 sections Father Healthy adult Grandfather Healthy adult Grandmother Cancer Breast cancer Hypertension Endometrial cancer Grandfather Smoker Grandmother Healthy adult Social History marital status: unmarried,living together number of children: 1 household members: significant other and children lives independently: Yes caregiver/support person: Yes housing: house pets and animals: Yes (X 1 dog) education level: college (oiron's degree) 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) current occupational exposures/hazards: No special brie needs: No travel history: recent (domestic only) seatbelt use: always water heater temp set < 120 deg: Yes working smoke detector in home: Yes fire extinguisher in home: Yes carbon monox detector in home: Yes firearms in home: Yes firearms unloaded and locked: Yes do you feel safe at home: Yes Smoking Status: Never smoker second hand exposure: No alcohol intake: former (~2/week when not ) substance use type: does not use during the past year weight has: remained stable well-balanced diet: daily or most days daily servings fruits/ve-4 caffeine: Yes (aware of 200mg limit) Type(s) of exercise: walking frequency: daily duration: 15-30 minutes/day Meds Home Medications and Allergies Home Medications Medication Instructions Recorded Confirmed Type prenat.vits,nieves,yna-zbnp-istua 1 tab PO DAILY 08/05/20 02/03/23 History Allergies Allergy/AdvReac Type Severity Reaction Status Date / Time No Known Drug Allergies Allergy Verified 02/03/23 10:14 Review of Systems Review of Systems Narrative: Problem-specific ROS positives included in HPI OB Exam HENMT Head: normal to inspection, normocephalic and atraumatic Eyes General: appearance normal, both eyes and all related structures Resp Effort & Inspection: normal respiratory effort and able to speak in complete sentences Auscultation: clear to auscultation bilaterally Cardio Rate: regular rate Rhythm: regular rhythm Heart Sounds: S1 normal, S2 normal and no murmurs Extremities Lower extremity: Yes normal to inspection GI Inspection: normal to inspection Palpation: Yes soft and Yes no hepatosplenomegaly Uterus Location (Fundal Height): 38 Presentation: vertex Estimated Weight (lbs): 8 Assessment and Plan Assessment and Plan Assessment and Plan narrative: ASSESSMENT 1. Intrauterine , 39+0 weeks EGA 2. Prior section x 1 PLAN 1. Admit for repeat section 2. See admission orders
[2023-02-10] MEDS: LACTATED RINGERS 1,000 ML 999 ML IV (12:10)
[2023-02-10 12:25] LABS: Add Manual Diff / Slide Review NO; Basophils Absolute Auto 0 /uL (0-100); Basophils Percent Auto 0.3 % (0-2); Eosinophils Absolute Auto 200 /uL (0-450); Eosinophils Percent Auto 1.1 % (2-4); Hematocrit 39.9 % (36-46); Hemoglobin 13.2 g/dL (12.0-16.0); Lymphocytes Absolute Auto 2100 /uL (1100-4500); Lymphocytes Percent Auto 15.4 % (25-40); Mean Corpuscular HGB Conc 33.1 % (30-36); Mean Corpuscular Hemoglobin 30.3 PG (26-34); Mean Corpuscular Volume 91.6 fL (80-100); Monocytes Absolute Auto 900 /uL (0-900); Monocytes Percent Auto 6.3 % (3-14); Neutrophils Absolute Auto 10400 /uL (1500-7000); Neutrophils Percent Auto 76.9 % (50-75); Platelet Count 282 X10^3/uL (150-400); Red Blood Cell Count 4.36 X10^6/uL (4.0-5.2); Red Cell Distribution Width 14.2 % (11.6-14.8); White Blood Cell Count 13.6 X10^3/uL (4.5-11.0)
--- NOTE | 2023-02-10 13:45 | PM.PREOP ---
Pre-operative Note COVID-19 COVID-19 status: Not tested Criteria for continued procedure: Non-surgical alternatives not available or appropriate per current SOC Interval Note History & Physical reviewed/Exam performed by Physician: Yes Changes to H&P: No
[2023-02-10] MEDS: CEFAZOLIN 2 GM/100 ML PREMIX 100 ML IV (13:53)
--- NOTE | 2023-02-10 13:57 | SUR.OPER ---
Supine on Padded OR bed, head on pillow, safety belt at thigh, arms secured on padded arm boards at <90 degrees abduction. Bump under right buttock. Legs uncrossed with pillow under knees, gel pad to heels, tape over blanket to lower legs.
[2023-02-10] MEDS: ACETAMINOPHEN IV 1,000 MG/100 ML VIAL 400 MG IV (14:17)
--- NOTE | 2023-02-10 14:46 | SUR.OPER ---
FHR at 160. Viable baby girl born at 1432. Placenta delivered at 1437. 6/8. Cord, blood, and placenta given to OB RN.
[2023-02-10 15:26] VITALS: BP 107/70; PULSE 97; RESP 13; TEMP 36.1; O2SAT 98
[2023-02-10 15:31] VITALS: BP 117/70; PULSE 93; RESP 19; O2SAT 98
--- NOTE | 2023-02-10 15:34 | PM.OBCS.1 ---
Operative Date/Time/Diagnoses Date of procedure: 02/10/23 Time of procedure: 14:10 Pre-op diagnosis: Intrauterine gestation, leyva, 39+0 weeks EGA Previous section x 1 Post-op diagnosis: same Procedure & Clinicians Procedure: Repeat section, low transverse cervical Same procedure as scheduled: Yes Indications: Manjula Johnson is a 27 year old admitted now for repeat section at 39+ 0 weeks gestational age.? Her course has been largely uneventful with solid dating and appropriate milestones throughout.? testing by cell free DNA and/or quad screen declined.? Patient is GBS positive. Surgeon: Aydin Redd Secretary To The Vice President: Tete Delvalle Reason for Secretary To The Vice President: Secretary To The Vice President required for the safe, effective, and timely completion of this surgery. Anesthesia Type: Spinal Operative Notes Findings: Viable female BW 3428 gms. (7 lbs. 8.9 oz.), Apgars 6/8, delivered from the vertex presentation. Normal gravid anatomy. Closure Type: primary Specimen(s): cord blood Intraoperative meds administered: Ketorolac and Pitocin Applied: Catheter Estimated Blood Loss (mL): 600 Blood products transfused: none Procedure in detail: With her informed written consent, the patient was taken to the operating room and placed in the supine position for a repeat section procedure, for the indication(s) above. The abdomen was prepped and draped in the usual manner for section and a pre-surgical timeout was taken per [facility] OR protocol. Once effective anesthesia was confirmed, a 15 cm transverse Pfannenstiel incision was made in the skin and taken down through the subcutaneous tissues to the deep fascia. The deep fascia was incised transversely, the rectus abdominal eyes bluntly and sharply, and the peritoneal cavity entered without difficulty. The lower uterine segment was visualized and the position/presentation palpated. A transverse incision at or above the vesicouterine reflection was made with Metzenbaum scissors and transverse hysterotomy performed near the midline. Amniotomy revealed clear fluid. The incision was extended bilaterally with digital traction and the was delivered vacuum assist from the vertex presentation. The infant was vigorous and cord clamping delayed for 60 seconds. The placenta was delivered intact using gentle cord traction and fundal massage.The uterine cavity was then cleared of any clot/debris first with a sloppy wet lap tape followed by a dry lap tape. Ring forceps were then applied to the angles and the midline of the incised BLACK. A primary closure of the uterus was then accomplished with #1 CCGS in a running interlocking stitch followed by a 2nd layer of #1 CCGS in a running interlocking imbricating stitch. No additional sutures were required to achieve complete hemostasis. Once pelvic hemostasis was assured, the bladder flap and anterior peritoneum were closed with a running 2-0 Vicryl suture and the fascia closed with #1 Vicryl in a running stitch initiated at both angles and tying separately near the midline. The subcutaneous tissues were reapproximated with 2-0 plain catgut suture using inverted interrupted stitches. The skin edges were then brought together with 4-0 Monocryl in a subcuticular closure and the incision was reinforced with 1 Steri-Strips. An appropriate compression dressing was applied and the patient transferred to PACU for recovery and subsequent transfer to the Center for recuperation. Complications: none [place] Baby 1: Infant Gender: Female Presentation: vertex Position: Left Occiput Anterior Placental Delivery Description: Spontaneous Cord Vessel Description: 3 Vessels score (1 min): 6 score (5 min): 8 weight: 7 lb 8.919 oz Post-operative Condition: stable Disposition: PACU Aftercare: routine postop
[2023-02-10 15:36] VITALS: BP 114/62; PULSE 84; RESP 21; O2SAT 97
[2023-02-10 15:43] VITALS: BP 113/65; PULSE 81; RESP 10; TEMP 35.9; O2SAT 97
--- NOTE | 2023-02-10 15:57 | SUR.PHASEI ---
Patient transferred to the [facility] with RN, Lidia, present during recovery. Report given during recovery. VS stable.
[2023-02-10] MEDS: OXYTOCIN PREMIX 30 UNIT/500 ML PLAST..BAG 999 UNIT IV (16:35)
[2023-02-10] MEDS: TRANEXAMIC ACID 1,000 MG in SODIUM CHLORIDE 0.9% 100 ML 200 MG IV (16:46)
[2023-02-10] MEDS: METHYLERGONOVINE 0.2 MG/ML VIAL IM (16:47)
[2023-02-10] MEDS: OXYCODONE IR 5 MG TABLET PO (17:55)
[2023-02-10] MEDS: ONDANSETRON 4 MG/2 ML INJ IV (18:21)
[2023-02-10] MEDS: MORPHINE 4 MG/ML INJ IV (18:25)
[2023-02-10] MEDS: KETOROLAC 30 MG/ML VIAL IV (20:35)
[2023-02-10] MEDS: DOCUSATE 100 MG CAPSULE PO (20:35)
[2023-02-10 20:51] LABS: Add Manual Diff / Slide Review NO; Basophils Absolute Auto 0 /uL (0-100); Basophils Percent Auto 0.1 % (0-2); Eosinophils Absolute Auto 100 /uL (0-450); Eosinophils Percent Auto 0.3 % (2-4); Hemoglobin 12.1 g/dL (12.0-16.0); Lymphocytes Absolute Auto 2000 /uL (1100-4500); Lymphocytes Percent Auto 10.2 % (25-40); Mean Corpuscular HGB Conc 33.6 % (30-36); Mean Corpuscular Hemoglobin 30.6 PG (26-34); Mean Corpuscular Volume 91.1 fL (80-100); Monocytes Absolute Auto 1000 /uL (0-900); Monocytes Percent Auto 5.2 % (3-14); Neutrophils Absolute Auto 16400 /uL (1500-7000); Neutrophils Percent Auto 84.2 % (50-75); Platelet Count 254 X10^3/uL (150-400); Red Blood Cell Count 3.95 X10^6/uL (4.0-5.2); White Blood Cell Count 19.5 X10^3/uL (4.5-11.0)
[2023-02-10] MEDS: ACETAMINOPHEN 325 MG TABLET 650 MG PO (23:20)
[2023-02-11] MEDS: KETOROLAC 30 MG/ML VIAL IV ×2 (04:04→09:30)
[2023-02-11] MEDS: ACETAMINOPHEN 325 MG TABLET 650 MG PO ×2 (06:18→12:25)
[2023-02-11 09:02] LABS: Add Manual Diff / Slide Review NO; Basophils Absolute Auto 0 /uL (0-100); Basophils Percent Auto 0.2 % (0-2); Eosinophils Absolute Auto 200 /uL (0-450); Hematocrit 33.8 % (36-46); Hemoglobin 11.4 g/dL (12.0-16.0); Lymphocytes Absolute Auto 1800 /uL (1100-4500); Lymphocytes Percent Auto 10.5 % (25-40); Mean Corpuscular HGB Conc 33.7 % (30-36); Mean Corpuscular Hemoglobin 30.8 PG (26-34); Mean Corpuscular Volume 91.6 fL (80-100); Monocytes Absolute Auto 1400 /uL (0-900); Neutrophils Absolute Auto 14100 /uL (1500-7000); Neutrophils Percent Auto 80.3 % (50-75); Platelet Count 307 X10^3/uL (150-400); Red Blood Cell Count 3.69 X10^6/uL (4.0-5.2); Red Cell Distribution Width 14.5 % (11.6-14.8); White Blood Cell Count 17.6 X10^3/uL (4.5-11.0)
[2023-02-11] MEDS: PRENATAL VIT,CALC/IRON/FOLIC 1 TABLET 1 TAB PO (09:30)
[2023-02-11] MEDS: DOCUSATE 100 MG CAPSULE PO (09:30)
--- NOTE | 2023-02-11 12:33 | PM.OBDS.1 ---
Discharge Providers Provider Date of admission: 02/10/23 11:27 Discharge Date: 02/11/23 Primary care physician: Doctor Amari MD Consults: 02/10/23 16:05 Consult to Excavating Machine Operator Routine Comment: Discharge provider: Aydin Redd MD Summary Hospital Course Date Patient Seen: 02/11/23 Time Patient Seen: 12:38 Diagnoses: Intrauterine gestation, 40+ 0 weeks gestational age, delivered by repeat section Prior section hemorrhage Anemia due to blood acute loss Hospital Course: Manjula was admitted on the morning of 02/10/2023 for repeat section. She underwent an uneventful repeat section by low transverse cervical incision on the afternoon 02/10/2023. Details of the procedure well summarized in my operative note of that date. With an estimated blood loss at surgery 600 cc, the patient had some significant vaginal bleeding following delivery which was easily controlled with intravenous Pitocin, IM Methergine, and IV TXA. Total blood loss from operative and losses were between 1350 cc and 1500 cc. Patient's vitals have remained stable throughout her course and her day 1 hemoglobin and hematocrit are 11.4 and 33.8 which is consistent with observed operative losses. Both mother and baby have done extremely well following delivery with the mother experiencing prompt return of bowel and bladder function, she is ambulating independently, tolerating regular diet, and her pain is well controlled with oral pain medications. She will be discharged at this time in an afebrile normotensive condition to home with medications to include resumption of all pre delivery medications, oxycodone 5 mg p.o. q.6 hours as needed pain, ibuprofen 600 mg p.o. q.6 hours as needed pain. In addition she will add a single tablet of iron supplement and a tablet vitamin-C daily to medication regimen. Peripartum Data Infant Delivery Method: Section Laceration Description: None Episiotomy description: None Procedures: Spinal block anesthetic Repeat section (low transverse cervical) complications: none 1: Gender: Female Disposition of : home Status at Discharge Cognitive/behavioral status at discharge: oriented Functional status at discharge: independent ambulation Overall status at discharge: patient is progressing back to baseline Time Spent with Patient Time attestation: Total time spent providing and/or coordinating discharge services: Time spent: Less than 30 minutes Objective Labs 02/11/23 08:50 Labs: Laboratory Results - last 24 hr 02/10/23 02/10/23 02/11/23 12:15 20:25 08:50 WBC 19.5 H 17.6 H RBC 3.95 L 3.69 L Hgb 12.1 11.4 L Hct 36.0 33.8 L MCV 91.1 91.6 MCH 30.6 30.8 MCHC 33.6 33.7 RDW 14.0 14.5 Plt Count 254 307 Neut % (Auto) 84.2 H 80.3 H Lymph % (Auto) 10.2 L 10.5 L [place] % (Auto) 5.2 8.0 Eos % (Auto) 0.3 L 1.0 L Baso % (Auto) 0.1 0.2 Neut # (Auto) 23236 H 92675 H Lymph # (Auto) 2000 1800 [place] # (Auto) 1000 H 1400 H Eos # (Auto) 100 200 Baso # (Auto) 0 0 Blood Type A Positive Antibody Screen Negative Exam Vital Signs (past 8 hours): Oxygen Delivery Method Room Air Const General: cooperative and comfortable Nutritional Appearance: average body habitus Orientation: alert and oriented x3 HENMT Head: normal to inspection, atraumatic and abrasion Ears: hearing grossly normal bilaterally Face and sinus: face symmetric Eyes General: appearance normal, both eyes and all related structures Conjunctivae: conjunctivae normal Sclera: sclerae normal EOM: EOM intact bilaterally Neck Neck: normal visual inspection Resp Effort & Inspection: normal respiratory effort and able to speak in complete sentences Auscultation: clear to auscultation bilaterally Cardio Rate: regular rate Rhythm: regular rhythm Heart Sounds: S1 normal, S2 normal and no murmurs GI Inspection: normal to inspection and incision (Compression dressing removed, Aquacel applied) Palpation: soft, no hepatosplenomegaly and tender (Mild, diffuse postsurgical tenderness) Auscultation: hypoactive bowel sounds External Female Exam: other (No significant bleeding noted) Extrem General: no calf tenderness Psych Appearance: grossly normal Mental Status: mental status grossly normal Speech and Movement: speech and movement normal Mood: congruent mood Affect: normal affect Attitude: cooperative Thought Process: normal Thought Content: normal Judgment: judgment good Discharge Plan Discharge Plan Patient Disposition: Home Provider Discharge Comment: Please review the written instructions you received when you were discharged from the hospital. Your follow-up appointment will be scheduled for 1 week after your and I look forward to seeing you then. If however in the meanwhile you have questions, concerns, or other issues, please contact me either through the office phone at [phone], or via the patient portal. Discharge orders & Medications Prescriptions: New ibuprofen 600 mg Tablet 600 mg PO Q6H Qty: 30 2RF oxycodone 5 mg Tablet 5 mg PO Q6H PRN (Reason: Pain, Moderate (4-6)) Qty: 20 0RF Continued prenat.vits,nieves,bui-giwx-cjtuc Tablet 1 tab PO DAILY Follow up/Referrals: Doctor Fitzpatrick MD [Primary Care Provider] - Aydin Redd MD [Physician] - Discharge Health Status Multidrug resistant organism: No MDRO Diet/Activity/Treatments Diet: Diet as Tolerated Activity: As tolerated Other treatments: [id number] Tylenol may be used for additional pain relief. Wfcb-ksw-[id number] stool softeners and/or MiraLax may be used as needed for constipation. In addition to continuing your vitamins daily, you may add a single iron supplement tablet along with a vitamin-C tablet daily the next 30 days. Skin/Wound/Dressing Care Report to your healthcare provider any signs of infection, such as:: chills, fever, increased pain, unusual drainage and unusual redness Dressing: Your dressing will be removed at the time of your one-week postop visit. Visit Report/Discharge Packet Instructions: DI for , DI for and Nipple Soreness, DI for Prescription Opioid Use Discharge Data Primary Care Provider: Doctor Amari
== END 2023-02-11 15:10 | disposition home or self-care (01) | DRG 788 ==
PROVIDERS: Admitting Provider Obstetrics & Gynecology; Referring Provider Obstetrics & Gynecology; Visit Provider Obstetrics & Gynecology
PROC: 10D00Z1 Extraction of Products of Conception, Low, Open Approach (ICD-10-PCS; CPT 59514; principal; 2023-02-10 13:30)
DX: O34.211 Maternal care for low transverse scar from previous cesarean delivery (principal); O99.824 Streptococcus B carrier state complicating childbirth; Z3A.39 39 weeks gestation of pregnancy; Z37.0 Single live birth
CPT/HCPCS: 36415; 59050; 59510; 59514; 85025; 86850; 86900; 86901; J0131; J0690; J1885; J2210; J2270; J2274; J2405; J2590

== ENCOUNTER → 2023-07-26 12:11 | Outpatient (CLI) | payer SELFPAY ==
--- NOTE | 2023-07-26 12:30 | DI.US.S_ITS ---
PROCEDURE: US THYROID INDICATIONS: PALPABLE RIGHT NODULE TECHNIQUE: Real-time scanning was performed of the thyroid gland, with image documentation. COMPARISON: None. FINDINGS: Right: Thyroid lobe measures 6.1 x 1.4 x 2.2 cm, and is heterogenous in echotexture. Left: Thyroid lobe measures 5.9 x 1.5 x 1.7 cm, and is heterogenous in echotexture. Isthmus: 2.6 mm thick. Nodule number: 1 Location: Right anterior mid Size: 1.4 x 1.0 x 1.4 cm. Composition: Predominantly cystic Echogenicity: Hypoechoic Shape: wider than tall. Margins: Irregular Echogenic foci: None Total points: 5 ACR TI-RADS category: 4 Nodule number: 2 Location: Right inferior Size: 1.1 x 1.1 x 1.0 cm. Composition: Predominantly cystic Echogenicity: Hypoechoic Shape: wider than tall. Margins: Irregular Echogenic foci: None Total points: 5 ACR TI-RADS category: 4 Nodule number: 3 Location: Right mid Size: 1.1 x 0.7 x 1.0 cm. Composition: Predominantly cystic Echogenicity: Hypoechoic Shape: wider than tall. Margins: Irregular Echogenic foci: Non Total points: 5 ACR TI-RADS category: 4 IMPRESSION: Category 4 nodules on the right. Best practice guidelines suggest follow-up schedule as below. ACR TI-RADS definitions and recommendations: TI-RADS 1 (benign): 0 points. FNA not needed. TI-RADS 2 (not suspicious): 2 points. FNA not needed. TI-RADS 3 (mildly suspicious): 3 points. * FNA if 2.5 cm or larger, follow up if 1.5 cm or larger (at 1, 3, and 5 years). TI-RADS 4 (moderately suspicious): 4-6 points. * FNA if 1.5 cm or larger, follow up if 1 cm or larger (at 1, 2, 3, and 5 years). TI-RADS 5 (highly suspicious): 7 points or more. * FNA if 1 cm or larger, follow up if 0.5 cm or larger (every year for 5 years). Approved by: Luigi Fontenot M.D. on 07/26/2023 at 17:59
== END ==
PROVIDERS: PCP Family Medicine; Referring Provider Family Medicine; Visit Provider Family Medicine
DX: E04.2 Nontoxic multinodular goiter (principal)
CPT/HCPCS: 76536

== ENCOUNTER → 2023-07-28 10:44 | Outpatient (CLI) | payer SELFPAY ==
[2023-07-28 20:12] LABS: Free T3, Triiodothyronine Free 4.32 pg/mL (2.77-5.27); Free T4, Direct Thyroxine 1.18 ng/dL (0.78-2.19); T4 Total Thyroxine 7.76 ug/dL (5.5-11.0)
[2023-07-28 20:25] LABS: Thyroid Stimulating Hormone 0.601 uIU/mL (0.47-4.68)
[2023-07-30 07:09] LABS: Triiodothyronine T3 Total 118 ng/dL (71-180)
[2023-07-30 19:46] LABS: Anti Thyroglobulin Antibody <1.0 IU/mL (0.0-0.9); Thyroid Peroxidase Antibodies <9 IU/mL (0-34)
== END ==
PROVIDERS: PCP Family Medicine; Visit Provider Family Medicine
DX: E07.9 Disorder of thyroid, unspecified (principal)
CPT/HCPCS: 84436; 84439; 84443; 84480; 84481; 86376; 86800